=== PATIENT | male | born 1995 | race Caucasian/White ===

== ENCOUNTER 2016-10-10 00:22 | Emergency (ER) | payer BC ==
[2016-10-10 00:30] VITALS: BP 128/91
--- NOTE | 2016-10-10 01:31 | ED ---
Complaint/Male - History of Current Complaint Chief Complaint: EDUrogenitalProblems Time Seen by Provider: 10/10/16 00:42 - Allergies/Home Medications Allergies/Adverse Reactions: Allergies Allergy/AdvReac Type Severity Reaction Status Date / Time Amoxicillin Allergy Vomiting Verified 10/10/16 00:30 PMH/Surg Hx/FS Hx/Imm Hx Infectious Disease History: No Infectious Disease History: Denies: Traveled Outside the [place] in Last 30 Days - Social History Alcohol Use: Occasionally Substance Use Type: Reports: None Smoking Status (MU): Never Smoked Tobacco Physical Exam Vital Signs On Initial Exam: Initial Vitals Temp Pulse Resp BP Pulse Ox 97.9 F 96 16 128/91 100 10/10/16 00:25 10/10/16 00:25 10/10/16 00:25 10/10/16 00:25 10/10/16 00:25 Diagnostics - Vital Signs Vital Signs Temp Pulse Resp BP Pulse Ox 10/10/16 00:38 98.9 F 96 16 128/91 100 10/10/16 00:25 97.9 F 96 16 128/91 100 - Laboratory Lab Statement: Any lab studies that have been ordered have been reviewed, and results considered in the medical decision making process. - Ultrasound No standard instances Ultrasound Interpretation: No Acute Changes - Testicular US: 5 mm left epididymal cyst. Single right testicular microcalcification. No acute pathology. Ultrasound Interpretation Completed By: Radiologist
--- NOTE | 2016-10-10 06:45 | ED ---
Marcelino Suggs Rebecca, scribed for Ky Burrell MD on 10/10/16 at 0132 . GI/ HPI - HPI Summary HPI Summary: Pt is a 21 y/o M who presents to ED c/o L testicle pain. Pain began yesterday at 1200 and has been constant since onset. Treated with Ibuprofen [employer] which has alleviated sx. Pain is currently moderate, ranked 5/10. Denies any other symptoms. PMHx testicular torsion 3 months ago. - History of Current Complaint Chief Complaint: EDUrogenitalProblems Time Seen by Provider: 10/10/16 00:42 Stated Complaint: LEFT TESTICLE PAIN Hx Obtained From: Patient Onset/Duration: Started Hours Ago, Still Present Current Severity: Moderate Pain Intensity: 5 Additional Locations for Males: Testicles - Left Associated Signs and Symptoms: Positive: Negative Aggravating Factor(s): Nothing Alleviating Factor(s): Medication - Ibuprofen - Allergy/Home Medications Allergies/Adverse Reactions: Allergies Allergy/AdvReac Type Severity Reaction Status Date / Time Amoxicillin Allergy Vomiting Verified 10/10/16 00:30 PMH/Surg Hx/FS Hx/Imm Hx Endocrine/Hematology History: Denies: Hx Diabetes Cardiovascular History: Denies: Hx Coronary Artery Disease History: Reports: Other Problems/Disorders - Tetsicular tosion Infectious Disease History: No Infectious Disease History: Denies: Traveled Outside the [place] in Last 30 Days - Family History Known Family History: Negative: Hypertension - Social History Occupation: Student Alcohol Use: Occasionally Substance Use Type: Reports: None Smoking Status (MU): Never Smoked Tobacco Review of Systems Negative: Fever Positive: pain - L testicular pain All Other Systems Reviewed And Are Negative: Yes Physical Exam Triage Information Reviewed: Yes Vital Signs On Initial Exam: Initial Vitals Temp Pulse Resp BP Pulse Ox 97.9 F 96 16 128/91 100 10/10/16 00:25 10/10/16 00:25 10/10/16 00:25 10/10/16 00:25 10/10/16 00:25 Vital Signs Reviewed: Yes Appearance: Positive: Well-Appearing Skin: Positive: Warm Head/Face: Positive: Normal Head/Face Inspection ENT: Positive: Hearing grossly normal Neck: Positive: Supple Respiratory/Lung Sounds: Positive: Breath Sounds Present Cardiovascular: Positive: RRR Abdomen Description: Positive: Nontender, Soft Bowel Sounds: Positive: Present Male Genital Exam: Positive: testicular tenderness (R). Negative: testicular tenderness (L) Musculoskeletal: Positive: Strength/ROM Intact Neurological: Positive: Alert, Oriented to Person Place, Time Diagnostics - Vital Signs Vital Signs Temp Pulse Resp BP Pulse Ox 10/10/16 00:38 98.9 F 96 16 128/91 100 10/10/16 00:25 97.9 F 96 16 128/91 100 - Laboratory Lab Statement: Any lab studies that have been ordered have been reviewed, and results considered in the medical decision making process. - Ultrasound No standard instances Ultrasound Interpretation: No Acute Changes - Testicular US: 5 mm left epididymal cyst. Single right testicular microcalcification. No acute pathology. Ultrasound Interpretation Completed By: Radiologist Re-Evaluation - Re-Evaluation First Eval Change: Improved GIGU Course/Dx - Course Assessment/Plan: Pt is a 21 y/o M who presents to ED c/o L testicle pain. Pain began yesterday at 1200 and has been constant since onset. Treated with Ibuprofen [employer] which has alleviated sx. Pain is currently moderate, ranked 5/10. Denies any other symptoms. PMHx testicular torsion 3 months ago. Testicular US reveals a 5 mm left epididymal cyst with no acute pathology. Pt will be D/C to home with Dx of testicular cyst. He understands and agrees. Elevated BP noted and advised to f/u with PCP. - Diagnoses Provider Diagnoses: Testicular cyst Discharge - Discharge Plan Condition: Improved Disposition: HOME Patient Education Materials: Scrotal Pain (ED) Referrals: Aric Benavidez MD [Medical Doctor] - If Needed Non Staff,Doctor [Primary Care Provider] - Additional Instructions: Continue to take Ibuprofen as directed. The documentation as recorded by the Marcelino cooper Rebecca accurately reflects the service I personally performed and the decisions made by me, Ky Burrell MD.
--- NOTE | 2016-10-10 08:02 | RAD ---
INDICATION: Left testicular pain, history of testicular torsion. COMPARISON: There are no prior studies available for comparison. TECHNIQUE: Multiple real-time images of the testicles were obtained including color Doppler images and Doppler tracings. FINDINGS: The testicles are normal in size, shape and echogenicity. The right testicle measured 5.2 x 2.8 x 3.4 cm and the left testicle measured 5.3 x 2.1 x 3.0 cm. No intratesticular mass is seen. There is a solitary small calcification within the right testicle. There is symmetric vascular flow within both testicles. There is a small left epididymal cyst measuring 6 x 5 x 4 mm in size. IMPRESSION: 1. NO EVIDENCE FOR ACUTE FINDING. 2. SMALL 6 MM LEFT EPIDIDYMAL CYST.
== END 2016-10-10 02:00 | disposition home or self-care (01) ==
LOC: ED 00:22
DX: N44.2 Benign cyst of testis (principal); N50.812 Left testicular pain
CPT/HCPCS: 76870; 99281